=== PATIENT | female | born 2000 | race Caucasian/White ===

== ENCOUNTER 2018-04-30 22:10 | Emergency (ER) | payer SELFPAY ==
--- NOTE | 2018-05-01 00:14 | ED ---
Altered Mental Status - HPI Summary HPI Summary: Pt is a 17 y/o F who ate brownies w/ marijuana in them. Pt thought brownies were normal and ate them at around 1999 today. She began to feel weird, was having heart palpations, and stated that she was concerned she was having a heart attack. Pt called apartment-mate and was informed the brownies contain marijuana. In the room, pt states she feels better and denies abdominal pain. - History Of Current Complaint Chief Complaint: EDSubstanceAbuse Stated Complaint: HIGH HEART RATE Time Seen by Provider: 05/01/18 00:01 Hx Obtained From: Patient Onset/Duration: Resolved Timing: Lasting Hours - onset at 1999 today Severity Currently: None Aggravating Factor(s): Other - marijuana Alleviating Factor(s): Other - time PMH/Surg Hx/FS Hx/Imm Hx Cardiovascular History: Denies: Hx Myocardial Infarction Sensory History: Denies: Hx Legally Blind - accidental consumption today Infectious Disease History: Unable to Obtain/Confirm Infectious Disease History: Denies: Traveled Outside the [place] in Last 30 Days - Family History Known Family History: Negative: Blood Disorder - Social History Lives: Dormitory/Roommates Substance Use Type: Reports: Marijuana Review of Systems Positive: Palpitations Negative: Abdominal Pain Psychological: Other - "feeling weird" All Other Systems Reviewed And Are Negative: Yes Physical Exam - Summary Physical Exam Summary: Appearance: Well-appearing, Well-nourished, lying in bed comfortably Skin: Warm, dry, no obvious rash Eyes: sclera anicteric, no conjunctival pallor ENT: mucous membranes moist, pharynx appears normal Neck: Supple, nontender Respiratory: Clear to auscultation, no signs of respiratory distress Cardiovascular: Normal S1, S2. No murmurs. Normal distal pulses in tibial and radial bilaterally. Abdomen: Soft, nontender, normal active bowel sounds present Musculoskeletal: Normal, Strength/ROM Intact Neurological: A&Ox3, awake and alert, mentation is normal, speech is fluent and appropriate Psychiatric: affect is normal, does not appear anxious or depressed Triage Information Reviewed: Yes Vital Signs On Initial Exam: Initial Vitals Temp Pulse Resp BP Pulse Ox 98.2 F 104 18 141/97 100 04/30/18 22:13 04/30/18 22:13 04/30/18 22:13 04/30/18 22:13 04/30/18 22:13 Vital Signs Reviewed: Yes Diagnostics - Vital Signs Vital Signs Temp Pulse Resp BP Pulse Ox 04/30/18 22:13 98.2 F 104 18 141/97 100 - Laboratory Lab Statement: Any lab studies that have been ordered have been reviewed, and results considered in the medical decision making process. Altered Mental Statu Course/Dx - Diagnoses Provider Diagnoses: Cannabis intoxication Discharge - Sign-Out/Discharge Documenting (check all that apply): Patient Departure - Discharge Plan Condition: Improved Disposition: HOME Patient Education Materials: Cannabis Abuse (ED) Referrals: No Primary Care Phys,NOPCP [Primary Care Provider] - - Billing Disposition and Condition Condition: IMPROVED Disposition: Home
[2018-05-01 00:51] VITALS: BP 139/93
== END 2018-05-01 00:56 | disposition home or self-care (01) ==
LOC: ED 22:10
DX: F12.929 Cannabis use, unspecified with intoxication, unspecified (principal)
CPT/HCPCS: 99282

== ENCOUNTER 2018-07-29 23:11 | Emergency (ER) | payer BC ==
--- NOTE | 2018-07-30 00:38 | ED ---
Hypertension - HPI Summary HPI Summary: A 17 y/o female presents to ED c/o HTN. In the ED room, the patient has a pulse of 105 BPM, O2 saturation of 100% and blood pressure of 138/99. As per triage, "Pt arrived ALS by Adam wilkinson for palpitations. Pt states she was sitting in class and felt her heart racing, She states she drank extra coffee today and has been stressing out over exams". According to the patient, her HR started racing around 2130 during class at [employer]. She noted that she had 2 large cups of coffee prior to the episode. She does any nausea,vomiting, SOB or chills, however, has chest discomfort, not pain. She currently feels fine. Additionally denies any LOC or pain in calves. Patient takes control pills. Something like this has never happened before. Patient has exam in a couple days. Patient plays soccer. Patient opts out of blood work. - History of Current Complaint Chief Complaint: EDDysrhythmPalp Stated Complaint: CARDIAC ISSUE Time Seen by Provider: 07/30/18 00:08 Hx Obtained From: Patient Onset/Duration: Started Hours Ago Timing: Constant Aggravating Factor(s): Nothing Alleviating Factor(s): Nothing Associated Signs & Symptoms: Negative - Allergies/Home Medications Allergies/Adverse Reactions: Allergies Allergy/AdvReac Type Severity Reaction Status Date / Time No Known Allergies Allergy Verified 05/01/18 00:51 Home Medications: Home Medications NK [No Home Medications Reported] 07/30/18 [History Confirmed 07/30/18] PMH/Surg Hx/FS Hx/Imm Hx Endocrine/Hematology History: Denies: Hx Diabetes Cardiovascular History: Denies: Hx Hypertension, Hx Myocardial Infarction Respiratory History: Denies: Hx Asthma Sensory History: Denies: Hx Legally Blind - accidental consumption today Opthamlomology History: Denies: Hx Legally Blind - accidental consumption today - Surgical History Surgery Procedure, Year, and Place: PER PATIENT, NO PRIOR SURGERIES. Infectious Disease History: No Infectious Disease History: Denies: Traveled Outside the [place] in Last 30 Days - Family History Known Family History: Negative: Hypertension, Diabetes, Blood Disorder - Social History Alcohol Use: Occasionally Substance Use Type: Reports: Marijuana Smoking Status (MU): Never Smoked Tobacco Review of Systems Negative: Fever, Chills Positive: Other - POSITIVE: HIGH BP, CHEST DISCOMFORT. Negative: Chest Pain Negative: Shortness Of Breath Negative: Vomiting, Nausea Positive: Other - NEGATIVE: CALF PAIN Neurological: Other - NEGATIVE: LOC All Other Systems Reviewed And Are Negative: Yes Physical Exam - Summary Physical Exam Summary: VITAL SIGNS: Reviewed. GENERAL: Patient is a well-developed and nourished female who is lying comfortable in the stretcher. Patient is not in any acute respiratory distress. HEAD AND FACE: No signs of trauma. No ecchymosis, hematomas or skull depressions. No sinus tenderness. EYES: PERRLA, EOMI x 2, No injected conjunctiva, no nystagmus. EARS: Hearing grossly intact. Ear canals and tympanic membranes are within normal limits. MOUTH: Oropharynx within normal limits. NECK: Supple, trachea is midline, no adenopathy, no JVD, no carotid bruit, no c- spine tenderness, neck with full ROM. CHEST: Symmetric, no tenderness at palpation LUNGS: Clear to auscultation bilaterally. No wheezing or crackles. CVS: Regular rate and rhythm, S1 and S2 present, no murmurs or gallops appreciated. ABDOMEN: Soft, non-tender. No signs of distention. No rebound no guarding, and no masses palpated. Bowel sounds are normal. EXTREMITIES: FROM in all major joints, no edema, no cyanosis or clubbing. NEURO: Alert and oriented x 3. No acute neurological deficits. Speech is normal and follows commands. SKIN: Dry and warm PSYCH: Anxious Triage Information Reviewed: Yes Vital Signs On Initial Exam: Initial Vitals Pulse Resp BP Pulse Ox 98 14 138/99 100 07/29/18 23:41 07/29/18 23:41 07/29/18 23:41 07/29/18 23:41 Vital Signs Reviewed: Yes Diagnostics - Vital Signs Vital Signs Temp Pulse Resp BP Pulse Ox 07/30/18 00:14 89 14 141/94 100 07/30/18 00:12 92 19 140/101 100 07/30/18 00:00 94 30 100 07/29/18 23:54 91 25 100 07/29/18 23:52 98.1 F 90 14 138/99 100 07/29/18 23:41 98 14 138/99 100 - Laboratory Lab Statement: Any lab studies that have been ordered have been reviewed, and results considered in the medical decision making process. - EKG 0020 Cardiac Rate: NL - 82 BPM EKG Rhythm: Sinus Rhythm EKG Interpretation: normal axis, normal interval, no ischemic changes Hypertension Course/Dx - Course Course Of Treatment: A 17 y/o female presents to ED c/o HTN. Patient declined blood work. Patient stated that she had large cup of coffee before a final exam tomorrow. Patient is anxious. Patient requests to go home. EKG reveals NSR of 82 BPM, normal axis, normal interval, no ischemic changes. Patient will be discharged with a diagnosis of palpitations and anxiety. Patient is to follow up with PCP in 1-2 days. Patient is agreeable with this. - Diagnoses Provider Diagnoses: Palpitations, Anxiety Discharge - Sign-Out/Discharge Documenting (check all that apply): Patient Departure - DISCHARGE - Discharge Plan Condition: Stable Disposition: HOME Patient Education Materials: Heart Palpitations (ED), Anxiety (ED) Referrals: [facility] [Outside] - 2 Days Additional Instructions: FOLLOW UP WITH PRIMARY CARE IN 1-2 DAYS. RETURN TO ED FOR ANY NEW OR WORSENING SYMPTOMS. - Attestation Statements Document Initiated by Scribe: Yes Documenting Scribe: Stanislav Frances Provider For Whom Scribe is Documenting (Include Credential): Nava Rios MD Scribe Attestation: Stanislav Mckinney, scribed for Nava Rios MD on 07/30/18 at 0032.
[2018-07-30 00:57] VITALS: BP 129/92
== END 2018-07-30 00:58 | disposition home or self-care (01) ==
LOC: ED 23:11
DX: R00.2 Palpitations (principal); I10 Essential (primary) hypertension; F41.9 Anxiety disorder, unspecified
CPT/HCPCS: 93005; 99283

== ENCOUNTER 2018-08-03 15:08 | Emergency (ER) | payer BC ==
[2018-08-03 15:17] VITALS: BP 148/97
== END 2018-08-03 17:18 | disposition left against medical advice (07) ==
LOC: ED 15:08
DX: R00.2 Palpitations (principal); Z53.21 Procedure and treatment not carried out due to patient leaving prior to being seen by health care provider
CPT/HCPCS: 93005

== ENCOUNTER 2018-08-03 19:47 | Emergency (ER) | payer BC ==
[2018-08-03] MEDS ORDERED: ALPRAZolam TAB* 0.5 MG PO ONE (23:00)
[2018-08-03 23:32] LABS: ABS Basophils 0.1 10^3/ul (0-0.2); ABS Eosinophils 0 10^3/ul (0-0.6); ABS Lymphocytes 1.8 10^3/ul (1.0-4.8); ABS Monocytes 0.3 10^3/ul (0-0.8); ABS Neutrophils 4.5 10^3/ul (1.5-7.7); ABS Nucleated RBC 0 10^3/ul; Eosinophil % 0.5 % (0-6); Hematocrit 42 % (35-47); Hemoglobin 14.5 g/dl (12.0-16.0); Lymphocyte % 26.7 % (25-47); Mean Corpuscular HGB Conc 35 g/dl (31-36); Mean Corpuscular Hemoglobin 30 pg (27-31); Mean Corpuscular Volume 86 fL (80-97); Mean Platelet Volume 8.2 um3 (7.4-10.4); Nucleated Red Blood Cells % 0.2; Platelet Count 239 10^3/ul (150-450); Red Blood Count 4.89 10^6/ul (4.00-5.40); Red Cell Distribution Width 14 % (10.5-15); White Blood Count 6.7 10^3/ul (3.5-10.8)
[2018-08-03 23:52] LABS: EGFR Non-African American 91.1 (>60)
--- NOTE | 2018-08-04 00:42 | ED ---
HPI Cardiac - HPI Summary HPI Summary: Patient is a 17 y/o F w/ c/o palpitations onsetting today. She came to ED via EMS earlier today at around 1400 for the same Sx but left without being seen after palpations stopped. Patient reports that palpitations began again at 1930. In the room, she also reports chest tightness. 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 She denies caffeine usage today. She also notes a prior episode of palpitations five days ago. Patient came to ED and was discharged to home w/ Dx of anxiety and palpitations. LNMP was two weeks ago, takes control. On triage, associated severity is rated 3/10, laying down and staying still is reported to alleviate Sx, nothing is noted to aggravate Sx. Home medications and allergies are reviewed. - History of Current Complaint Chief Complaint: EDDysrhythmPalp Stated Complaint: PALPITATIONS Time Seen by Provider: 08/03/18 22:38 Hx Obtained From: Patient Onset/Duration: Started Hours Ago - first episode around 1400, second at 1930, Started Days Ago - episode five days ago of similar Sx is reported, Still Present Timing: Lasting Hours Current Severity: Mild - 3/10 Pain Intensity: 3 Pain Scale Used: 0-10 Numeric - 3/10 Character: Tightness Aggravating Factor(s): Nothing Alleviating Factor(s): Other: - lying down and staying still Associated Signs and Symptoms: Positive: Palpitations, Other: - chest tightness - Allergy/Home Medications Allergies/Adverse Reactions: Allergies Allergy/AdvReac Type Severity Reaction Status Date / Time No Known Allergies Allergy Verified 05/01/18 00:51 Home Medications: Home Medications Desogestrel-Ethinyl Estradiol [Cyred 28 Day Tablet] 1 tab PO DAILY 08/03/18 [ History Confirmed 08/03/18] PMH/Surg Hx/FS Hx/Imm Hx Endocrine/Hematology History: Denies: Hx Diabetes Cardiovascular History: Denies: Hx Hypertension, Hx Myocardial Infarction Respiratory History: Denies: Hx Asthma Sensory History: Denies: Hx Legally Blind - accidental consumption today Opthamlomology History: Denies: Hx Legally Blind - accidental consumption today - Surgical History Surgery Procedure, Year, and Place: PER PATIENT, NO PRIOR SURGERIES. Infectious Disease History: No Infectious Disease History: Denies: Traveled Outside the [place] in Last 30 Days - Family History Known Family History: Negative: Hypertension, Diabetes, Blood Disorder - Social History Alcohol Use: Occasionally Substance Use Type: Reports: Marijuana Smoking Status (MU): Never Smoked Tobacco Review of Systems Negative: Fever - on vitals, temp is 98 F Positive: Palpitations, Other - chest discomfort All Other Systems Reviewed And Are Negative: Yes Physical Exam - Summary Physical Exam Summary: VITAL SIGNS: Reviewed. GENERAL: Patient is a well-developed and nourished female who is lying comfortable in the stretcher. Patient is not in any acute respiratory distress. HEAD AND FACE: No signs of trauma. No ecchymosis, hematomas or skull depressions. No sinus tenderness. EYES: PERRLA, EOMI x 2, No injected conjunctiva, no nystagmus. EARS: Hearing grossly intact. Ear canals and tympanic membranes are within normal limits. MOUTH: Oropharynx within normal limits. NECK: Supple, trachea is midline, no adenopathy, no JVD, no carotid bruit, no c- spine tenderness, neck with full ROM. CHEST: Symmetric, no tenderness at palpation LUNGS: Clear to auscultation bilaterally. No wheezing or crackles. CVS: Regular rate and rhythm, S1 and S2 present, no murmurs or gallops appreciated. ABDOMEN: Soft, non-tender. No signs of distention. No rebound no guarding, and no masses palpated. Bowel sounds are normal. EXTREMITIES: FROM in all major joints, no edema, no cyanosis or clubbing. NEURO: Alert and oriented x 3. No acute neurological deficits. Speech is normal and follows commands. SKIN: Dry and warm Triage Information Reviewed: Yes Vital Signs On Initial Exam: Initial Vitals Temp Pulse Resp BP Pulse Ox 98 F 89 20 150/95 100 08/03/18 20:02 08/03/18 20:02 08/03/18 20:02 08/03/18 20:02 08/03/18 20:02 Vital Signs Reviewed: Yes Diagnostics - Vital Signs Vital Signs Temp Pulse Resp BP Pulse Ox 08/03/18 23:45 16 08/03/18 22:53 84 15 100 08/03/18 22:52 87 16 152/102 100 08/03/18 22:50 87 131/102 100 08/03/18 20:02 98 F 89 20 150/95 100 - Laboratory Lab Results: Lab Results 08/03/18 08/03/18 08/03/18 Range/Units 23:26 23:26 23:26 WBC 6.7 (3.5-10.8) 10^3/ul RBC 4.89 (4.00-5.40) 10^6/ul Hgb 14.5 (12.0-16.0) g/dl Hct 42 (35-47) % MCV 86 (80-97) fL MCH 30 (27-31) pg MCHC 35 (31-36) g/dl RDW 14 (10.5-15) % Plt Count 239 (150-450) 10^3/ul MPV 8.2 (7.4-10.4) um3 Neut % (Auto) 67.1 (38-83) % Lymph % (Auto) 26.7 (25-47) % [place] % (Auto) 4.9 (0-7) % Eos % (Auto) 0.5 (0-6) % Baso % (Auto) 0.8 (0-2) % Absolute Neuts (auto) 4.5 (1.5-7.7) 10^3/ul Absolute Lymphs (auto) 1.8 (1.0-4.8) 10^3/ul Absolute Monos (auto) 0.3 (0-0.8) 10^3/ul Absolute Eos (auto) 0 (0-0.6) 10^3/ul Absolute Basos (auto) 0.1 (0-0.2) 10^3/ul Absolute Nucleated RBC 0 10^3/ul Nucleated RBC % 0.2 D-Dimer, Quantitative < 200 (Less Than 230) ng/mL Sodium 139 (135-145) mmol/L Potassium 3.7 (3.5-5.0) mmol/L Chloride 108 (101-111) mmol/L Carbon Dioxide 25 (22-32) mmol/L Anion Gap 6 (2-11) mmol/L BUN 7 (6-24) mg/dL Creatinine 0.81 (0.51-0.95) mg/dL Est GFR ( Amer) 110.2 (>60) Est GFR (Non-Af Amer) 91.1 (>60) BUN/Creatinine Ratio 8.6 (8-20) Glucose 131 H (70-100) mg/dL Calcium 9.8 (8.6-10.3) mg/dL Magnesium 2.2 (1.9-2.7) mg/dL Total Bilirubin 0.30 (0.2-1.0) mg/dL AST 15 (13-39) U/L ALT 13 (7-52) U/L Alkaline Phosphatase 49 (34-104) U/L Troponin I 0.00 (<0.04) ng/mL Total Protein 7.9 (6.4-8.9) g/dL Albumin 4.6 (3.2-5.2) g/dL Globulin 3.3 (2-4) g/dL Albumin/Globulin Ratio 1.4 (1-3) TSH 2.97 (0.34-5.60) mcIU/mL Beta HCG, Quant < 0.60 mIU/mL Result Diagrams: 08/03/18 23:26 08/03/18 23:26 Lab Statement: Any lab studies that have been ordered have been reviewed, and results considered in the medical decision making process. - EKG 2019 Cardiac Rate: NL - rate of 91 BPM EKG Rhythm: Sinus Rhythm EKG Interpretation: Normal axis. Normal interval. No ischemic changes Re-Evaluation - Re-Evaluation First Eval Re-Evaluation Time: 23:22 Comment: Better after Xanax. Patient's Sx are highly likely secondary to anxiety , but holter moniter is recommended. She will follow up with PCP in 1-2 days, patient is agreeable with discharge plan. Disposition - Course Course Of Treatment: Patient is a 17 y/o F w/ c/o palpitations onsetting today. She came to ED via EMS earlier today at around 1400 for the same Sx but left without being seen after palpations stopped. Patient reports that palpitations began again at 1930. In the room, she also reports chest tightness. 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 She denies caffeine usage today. She also notes a prior episode of palpitations five days ago. Patient came to ED and was discharged to home w/ Dx of anxiety and palpitations. Physical exam was normal. During ED course, patient was given Xanax 0.5 mg PO ONCE. Labs showed d-dimer < 200, trop 0, TSH 2.97, Beta HCG < 0.6. EKG showed sinus rhythm w/ BPM of 91, Normal axis. Normal interval. No ischemic changes. Patient reports feeling better after Xanax. Patient's Sx are highly likely secondary to anxiety, but holter moniter is recommended. She will follow up with PCP in 1-2 days, patient is agreeable with discharge plan. Dx of palpitations. - Diagnoses Provider Diagnoses: Palpitations Discharge - Sign-Out/Discharge Documenting (check all that apply): Patient Departure - discharge - Discharge Plan Condition: Stable Disposition: HOME Prescriptions: ALPRAZolam TAB* [Xanax TAB*] 0.5 mg PO BID PRN #10 tab MDD 2 PRN Reason: Anxiety Patient Education Materials: Heart Palpitations (ED) Referrals: [facility] [Outside] - 2 Days Additional Instructions: RETURN TO THE EMERGENCY DEPARTMENT FOR CHANGING OR WORSENING SYMPTOMS. YOU ARE RECOMMENDED TO GET HOLTER MONITOR. FOLLOW UP WITH PRIMARY CARE PHYSICIAN IN 1-2 DAYS. - Attestation Statements Document Initiated by Scribe: Yes Documenting Scribe: Steven Cedeño Provider For Whom Scribe is Documenting (Include Credential): Nava Rios MD Scribe Attestation: ISteven , scribed for Nava Rios MD on 08/04/18 at 0147.
[2018-08-04 01:11] VITALS: BP 109/74
== END 2018-08-04 01:17 | disposition home or self-care (01) ==
LOC: ED 19:47
DX: R00.2 Palpitations (principal); R07.89 Other chest pain
CPT/HCPCS: 36415; 80053; 83735; 84443; 84484; 84702; 85025; 85379; 93005; 99283; A9270-GY

== ENCOUNTER 2018-08-04 19:47 | Emergency (ER) | payer BC ==
[2018-08-04 22:41] VITALS: BP 118/76
== END 2018-08-04 22:42 | disposition left against medical advice (07) ==
LOC: ED 19:47
DX: R00.2 Palpitations (principal); Z53.21 Procedure and treatment not carried out due to patient leaving prior to being seen by health care provider

== ENCOUNTER 2019-02-21 16:21 | Emergency (ER) | payer BC ==
[2019-02-21 16:32] VITALS: BP 145/76
--- NOTE | 2019-02-21 16:37 | UC ---
Lower Extremity/Ankle HPI - HPI Summary HPI Summary: 18-year-old female presents with 4-5 day history of numbness to her left leg. States initially began to the anterior aspect of her left lower leg but since onset has also noticed some numbness to the posterior lower leg and anterior thigh. States she did fall while playing soccer last week denies any specific injury at that time. Denies back pain, leg weakness, difficulty ambulating, lower extremity swelling, calf pain or tenderness, or loss of bowel or bladder control. - History of Current Complaint Stated Complaint: LEG COMPLAINT Time Seen by Provider: 02/21/19 16:25 Hx Obtained From: Patient - Allergies/Home Medications Allergies/Adverse Reactions: Allergies Allergy/AdvReac Type Severity Reaction Status Date / Time No Known Allergies Allergy Verified 02/21/19 16:32 PMH/Surg Hx/FS Hx/Imm Hx Previously Healthy: Yes Psychological History: Anxiety - Surgical History Surgery Procedure, Year, and Place: PER PATIENT, NO PRIOR SURGERIES. - Family History Known Family History: Negative: Hypertension, Diabetes, Blood Disorder - Social History Occupation: Student Lives: Dormitory/Roommates Alcohol Use: Occasionally Substance Use Type: Marijuana Smoking Status (MU): Never Smoked Tobacco Review of Systems All Other Systems Reviewed And Are Negative: Yes Constitutional: Negative: Fever, Chills Skin: Negative: Rash Respiratory: Negative: Shortness Of Breath, Cough Cardiovascular: Negative: Palpitations, Chest Pain Gastrointestinal: Positive: Negative Genitourinary: Positive: Negative Musculoskeletal: Positive: Negative Neurological: Positive: Paresthesia - See HPI Is Patient Immunocompromised?: No Physical Exam - Summary Physical Exam Summary: GENERAL APPEARANCE: Well developed, well nourished, alert and cooperative, and appears to be in no acute distress. CARDIAC: Normal S1 and S2. No S3, S4 or murmurs. Rhythm is regular. There is no peripheral edema, cyanosis or pallor. Extremities are warm and well perfused. Capillary refill is less than 2 seconds. Peripheral pulses intact. LUNGS: Clear to auscultation without rales, rhonchi, wheezing or diminished breath sounds. ABDOMEN: Positive bowel sounds. Soft, nondistended, nontender. No guarding or rebound. No masses or hepatosplenomegally. MUSKULOSKELETAL: ROM intact to all extremities. No joint erythema or tenderness. Normal muscular development. Normal gait. BACK: Examination of the spine reveals normal posture, no spinal deformity or tenderness, decreased range of motion or muscular spasm. NEUROLOGICAL: Lower extremity strength and sensation symmetric and intact. Patient was able to distinguish sharp and dull to all dermatomes in the left lower leg. Bilateral patellar and achilles reflexes 2+. SKIN: Skin normal color, texture and turgor with no lesions or eruptions. Triage Information Reviewed: Yes Vital Signs Reviewed: Yes Lower Extremity Course/Dx - Course Course Of Treatment: 18-year-old female presents with 4-5 day history of numbness to her left leg. States initially began to the anterior aspect of her left lower leg but since onset has also noticed some numbness to the posterior lower leg and anterior thigh. States she did fall while playing soccer last week denies any specific injury at that time. Denies back pain, leg weakness, difficulty ambulating, lower extremity swelling, calf pain or tenderness, or loss of bowel or bladder control. Afebrile. Hypertensive blood otherwise vital signs stable. Exam was overall unremarkable. Discussed with patient that I suspect her symptoms are from a peripheral neuropathy of indeterminate cause. Patient has follow-up already scheduled with [facility] on 02/24/2019. I have recommended that she keep this appointment for reevaluation and possible outpatient testing if needed. Also given her referral to neurology should [place] not be able to arrange for any necessary testing. Anticipatory guidance and warning symptoms were reviewed with the patient. She verbalizes understanding and agrees with plan of care. - Differential Dx/Diagnosis Differential Diagnosis/HQI/PQRI: Other - peripheral neuropathy, bulging disc Provider Diagnosis: Paresthesia of left leg Discharge - Sign-Out/Discharge Documenting (check all that apply): Patient Departure All imaging exams completed and their final reports reviewed: No Studies - Discharge Plan Condition: Stable Disposition: HOME Patient Education Materials: Paresthesia (ED) Referrals: Sam Siegel MD [Medical Doctor] - (Call for appointment) No Primary Care Phys,NOPCP [Primary Care Provider] - [facility] [Provider Group] - 3 Days Additional Instructions: Your symptoms are consistent with a peripheral neuropathy which can have several different causes. It is usually benign and will resolve on its own over time but may require outpatient testing. Keep your appointment with [facility] on Friday for re-evaluation and to see if they are able to arrange any necessary outpatient studies. I have given you a referral to one of our Neurologists if needed. Seek immediate medical attention in the emergency room if you develop severe headache, facial droop, slurred or difficulty speaking, weakness of the arms or legs, inability to walk or bear weight on the leg, you lose control of your bowel or bladder, or any worsening of symptoms. - Billing Disposition and Condition Condition: STABLE Disposition: Home
== END 2019-02-21 17:06 | disposition home or self-care (01) ==
LOC: UCEAST 16:21
DX: R20.2 Paresthesia of skin (principal); R03.0 Elevated blood-pressure reading, without diagnosis of hypertension; F41.9 Anxiety disorder, unspecified
CPT/HCPCS: 99211; G0463

== ENCOUNTER 2019-05-12 12:10 | Emergency (ER) | payer BC ==
[2019-05-12 13:00] VITALS: BP 119/83
--- NOTE | 2019-05-12 13:46 | UC ---
Complaint Female HPI - HPI Summary HPI Summary: 18-year-old woman comes in with a chief complaint of vaginal bleeding. Patient is on a control pill and normally has menstrual bleeding once a month. She's not expecting any dental May 25, 2019. Does have some mild lower abdominal cramping. Denies any abnormal vaginal discharge or any concern of STI. She did miss a control pill about one week ago. No burning with urination. Feels well otherwise. Does not feel lightheaded. This morning she went to the bathroom and had vaginal blood which was about the amount of a mid cycle normalperiod. - History Of Current Complaint Chief Complaint: UCGU Stated Complaint: VAGINAL BLEEDING Time Seen by Provider: 05/12/19 13:11 Hx Last Menstrual Period: 04/20/19 Pain Intensity: 0 - Allergies/Home Medications Allergies/Adverse Reactions: Allergies Allergy/AdvReac Type Severity Reaction Status Date / Time No Known Allergies Allergy Verified 05/12/19 13:00 PMH/Surg Hx/FS Hx/Imm Hx Previously Healthy: Yes - Surgical History Surgical History: None Surgery Procedure, Year, and Place: PER PATIENT, NO PRIOR SURGERIES. - Family History Known Family History: Negative: Hypertension, Diabetes, Blood Disorder - Social History Alcohol Use: None Substance Use Type: None Smoking Status (MU): Never Smoked Tobacco Review of Systems All Other Systems Reviewed And Are Negative: Yes Constitutional: Positive: Negative Skin: Positive: Negative Eyes: Positive: Negative ENT: Positive: Negative Respiratory: Positive: Negative Cardiovascular: Positive: Negative Gastrointestinal: Positive: Negative Genitourinary: Positive: Negative, Other - see hpi. Negative: Dysuria, Hematuria, Frequency, Urgency Motor: Positive: Negative Neurovascular: Positive: Negative Musculoskeletal: Positive: Negative Neurological: Positive: Negative Psychological: Positive: Negative Is Patient Immunocompromised?: No Physical Exam Triage Information Reviewed: Yes Appearance: Well-Appearing, No Pain Distress, Well-Nourished Vital Signs: Initial Vital Signs Temp 99.1 F 05/12/19 12:54 Pulse 62 05/12/19 12:54 Resp 18 05/12/19 12:54 BP 119/83 05/12/19 12:54 Pulse Ox 100 05/12/19 12:54 Vital Signs Reviewed: Yes Eye Exam: Normal Eyes: Positive: Conjunctiva Clear Neck: Positive: Supple Respiratory: Positive: Lungs clear, Normal breath sounds, No respiratory distress Cardiovascular: Positive: RRR Abdomen Description: Positive: Nontender, Soft. Negative: CVA Tenderness (R), CVA Tenderness (L) Bowel Sounds: Positive: Present Musculoskeletal Exam: Normal Musculoskeletal: Positive: Strength Intact, ROM Intact Neurological: Positive: Alert, Muscle Tone Normal Psychological: Positive: Age Appropriate Behavior Skin Exam: Normal Complaint Female Dx - Course Course Of Treatment: Patient reports she's having less bleeding now than when it started this morning. She feels well otherwise. Urine is negative there's no blood in the urine patient's not having any pain her vital signs are stable she does not feel lightheaded there is no fever. Plan at this times follow-up with [facility] and get reevaluated sooner if worse or any questions or concerns. - Differential Dx/Diagnosis Provider Diagnosis: Abnormal vaginal bleeding Discharge - Sign-Out/Discharge Documenting (check all that apply): Patient Departure All imaging exams completed and their final reports reviewed: No Studies - Discharge Plan Condition: Stable Disposition: HOME Patient Education Materials: Dysfunctional Uterine Bleeding (ED) Referrals: [facility] [Provider Group] Additional Instructions: FOLLOW UP WITH ON LICENSE OF [facility]. GET RECHECKED SOONER IF YOUR CONDITION WORSENS OR ANY QUESTIONS OR CONCERNS. - Billing Disposition and Condition Condition: STABLE Disposition: Home
== END 2019-05-12 13:50 | disposition home or self-care (01) ==
LOC: UCEAST 12:10
DX: N93.9 Abnormal uterine and vaginal bleeding, unspecified (principal)
CPT/HCPCS: 81002; 81025; 99211; G0463

== ENCOUNTER 2019-09-11 17:28 | Emergency (ER) | payer BC ==
--- NOTE | 2019-09-11 17:34 | UC ---
Cardiac HPI - HPI Summary HPI Summary: 18 yo female presents with chest tightness and leg cramping. She tells me that over the last week she has noticed left leg cramping and intermittent chest tightness with occasional pain. She called [facility] and they recommended she come to for further evaluation. She has been feeling well otherwise and is eating and drinking as usual. Denies headache, dizziness, SOB, palpitations, abdominal pain, n/v/d/c, dysuria, back pain, numbness. She does not smoke. No personal or family hx of blood clots. She was seen in February 2019 for left leg numbness and referred to neurology for further evaluation - but ended up attributing this to a left knee injury and has been following with PT and her industrial trainer at [place] with good improvement. She has also been seen multiple times in July 2018 for chest tightness/ palpitations/chest pain - she ended up being dx'd with anxiety and notes that she gets chest tightness and palpitations when she gets anxious. - History of Current Complaint Stated Complaint: CHEST TIGHTNESS, LEG NUMBNESS Time Seen by Provider: 09/11/19 17:30 Hx Obtained From: Patient Hx Last Menstrual Period: 04/20/19 Initial Severity: Mild Current Severity: Mild Pain Intensity: 3 - Allergy/Home Medications Allergies/Adverse Reactions: Allergies Allergy/AdvReac Type Severity Reaction Status Date / Time gluten Allergy GI Upset Verified 09/11/19 17:39 Home Medications: Home Medications Ethinyl Estradiol/Drospirenone [Pricness 28 3-0.03 mg] 1 tab PO DAILY 09/11/19 [ History Confirmed 09/11/19] PMH/Surg Hx/FS Hx/Imm Hx Psychological History: Anxiety - Surgical History Surgical History: None Surgery Procedure, Year, and Place: PER PATIENT, NO PRIOR SURGERIES. - Family History Known Family History: Negative: Hypertension, Diabetes, Blood Disorder - Social History Occupation: Student Lives: Dormitory/Roommates Alcohol Use: None Substance Use Type: None Smoking Status (MU): Never Smoked Tobacco Review of Systems All Other Systems Reviewed And Are Negative: No Constitutional: Positive: Negative Skin: Positive: Negative Eyes: Positive: Negative ENT: Positive: Negative Respiratory: Positive: Negative Cardiovascular: Positive: Other - "chest tightness" Gastrointestinal: Positive: Negative Genitourinary: Positive: Negative Motor: Positive: Negative Neurovascular: Positive: Negative Musculoskeletal: Positive: Other: - Left leg cramp Neurological: Positive: Negative Psychological: Positive: Negative Physical Exam - Summary Physical Exam Summary: GENERAL: NAD. WDWN. No pain distress. SKIN: No rashes, sores, or open wounds. HEENT: Head: AT/NC Eyes: PERRLA. EOM intact. Conjunctiva clear without inflammation or discharge. Ears: Hearing grossly normal. TMs intact, no bulging, erythema, or edema. Nose: Nasal mucosa pink and moist. NTTP maxillary and frontal sinus. Throat: Posterior oropharynx without exudates, erythema, or tonsillar enlargement. Uvula midline. NECK: Supple. Nontender. No lymphadenopathy. CHEST: CTAB. No r/r/w. No accessory muscle use. Breathing comfortably and in no distress. CV: RRR. Pulses intact. Brisk cap refill. ABDOMEN: Soft. NTTP. No distention or guarding. No organomegaly. No CVA tenderness. Bowel sounds present MSK: FROM and 5/5 strength throughout. No edema. LEFT leg - no edema. Negative chelsea sign. NEURO: Alert. Sensations intact L3-S1 b/l PSYCH: Age appropriate behavior. Triage Information Reviewed: Yes Vital Signs: Vital Signs: Temp Pulse Resp BP Pulse Ox 98.8 F 81 18 134/85 100 09/11/19 17:31 09/11/19 17:31 09/11/19 17:31 09/11/19 17:31 09/11/19 17:31 Laboratory Tests 09/11/19 09/11/19 09/11/19 17:58 18:06 18:07 POC Glucose (mg/dL) 83 POC Urine Color Light yellow POC Urine Clarity Clear POC Urine pH 7.5 POC Ur Specif Beemer 1.010 POC Urine Protein Negative POC Ur Glucose (UA) Negative POC Urine Ketones Negative POC Urine Blood Negative POC Urine Nitrite Negative POC Urine Bilirubin Negative POC Urine Urobilinogen 0.2 POC U Leukocyte Esteras Negative POC Ur Test Negative Vital Signs Reviewed: Yes Diagnostics - EKG EKG Comparison: Other Summary of EKG Findings: 84 bpm NSR. Slightly prolonged QTc at 502ms. No STEMI as read by Dr. Antonio. - Assessment/Plan Course Of Treatment: POC glucose 83. UA negative. CXR wet read negative. Well's criteria 0. Low suspicion for PE/DVT at this time. Her chest tightness could be related to her anxiety, but given her leg cramping and chest tightness - I cannot rule out DVT/PE in the UC. I recommended she go to the ER for further evaluation. - Clinical Impression Provider Diagnosis: Chest tightness, Leg cramp Discharge ED - Sign-Out/Discharge Documenting (check all that apply): Patient Departure All imaging exams completed and their final reports reviewed: No - Discharge Plan Condition: Stable Disposition: HOME-RECOMMEND TO ED Referrals: No Primary Care Phys,NOPCP [Primary Care Provider] - Additional Instructions: Your urine, glucose, and chest x-ray were all normal today. I recommend that you go to the ER for further evaluation of your leg cramping and chest tightness. - Billing Disposition and Condition Condition: STABLE Disposition: Home-Recommend to ED
[2019-09-11 17:38] VITALS: BP 134/85
--- NOTE | 2019-09-12 12:09 | UC ---
- Progress Note Progress Note: Wet read correct Course/Dx - Diagnoses Provider Diagnoses: Chest tightness, Leg cramp Discharge ED - Sign-Out/Discharge Documenting (check all that apply): Post-Discharge Follow Up All imaging exams completed and their final reports reviewed: Yes - Discharge Plan Condition: Stable Disposition: HOME-RECOMMEND TO ED Referrals: No Primary Care Phys,NOPCP [Medical Doctor] - Additional Instructions: Your urine, glucose, and chest x-ray were all normal today. I recommend that you go to the ER for further evaluation of your leg cramping and chest tightness. - Billing Disposition and Condition Condition: STABLE Disposition: Home-Recommend to ED
== END 2019-09-11 18:46 | disposition home health service (06) ==
LOC: UCEAST 17:28
DX: R07.89 Other chest pain (principal); R25.2 Cramp and spasm; R20.0 Anesthesia of skin; Z91.09 Other allergy status, other than to drugs and biological substances
CPT/HCPCS: 71046; 81003; 84702; 93005; 99212; G0463